=== PATIENT | female | born 1975 | race Caucasian/White ===

== ENCOUNTER 2020-01-29 08:39 | Day surgery (SDC) | payer BC ==
[~2020-01-29 08:39] MED LIST: AMLO5 PO; ASPI81CH PO; Aldactone50 MG PO; Aspir 8181 MG PO; CALCIUM 600 +1 EA11 PO; CEPH500 PO; ERGO400 PO; GLUCOSAMINE HCL PO; HYDCHL12.5 PO; IBUP800 PO; NEOCOLOTSU OT; PROACE100 PO; SERT50 PO; Super B Comple1 EAC2 PO; ZESTORETIC 20-121 E1 PO
--- NOTE | 2020-01-29 09:52 | NUR ---
01/29/20 0952 Sean Kirk LIDOCAINE 1% 1:100,000 & BUPIVACAINE 0.5% 1:1 INJECTED PRIOR TO SX START BY DR. GUERRERO FOR PAIN CONTROL.
--- NOTE | 2020-01-29 12:55 | NUR ---
01/29/20 1255 HAROLDO CABEZAS PATIENT UP TO RECLINER, DENIES NAUSE/PAIN AND VSS- IV DC'D. ICE PACK TO ELBOW AND ARM ELEVATED ON PILLOW. MOTHER TO BEDSIDE. ENGAGED IN DC TEACHING. PT TOLERATING CLEAR LIQUIDS. DENIES NEED FOR CRACKERS/COOKIES. ENGAGED IN DC TEACHING, ALL QUESTIONS ASKED AND ANSWERED. PT DC TO VEHICLE.
== END 2020-01-29 10:35 | disposition home or self-care (01) ==
LOC: ORSCSDS 08:39
PROVIDERS: Orthopaedic Surgery
PROC: 01N50ZZ Release Median Nerve, Open Approach (ICD-10-PCS; principal; 2020-01-29 10:00)
DX: G56.01 Carpal tunnel syndrome, right upper limb (principal); F41.8 Other specified anxiety disorders; I10 Essential (primary) hypertension; E66.01 Morbid (severe) obesity due to excess calories; Z68.43 Body mass index [BMI] 50.0-59.9, adult; Z79.899 Other long term (current) drug therapy
CPT/HCPCS: J0171; J0690; J1100; J1885; J2250; J2405; J2704; J3010; J7120

== ENCOUNTER 2020-02-25 06:32 | Day surgery (SDC) | payer BC ==
[~2020-02-25] VITALS: Ht 167.6 cm; Wt 143.7 kg
[~2020-02-25 06:32] MED LIST changes: +CLON.2 PO
--- NOTE | 2020-02-25 07:54 | NUR ---
AMBULATE4 TO DAY SURGERY. CONFIRMED PROCEDURE. PATIENTS STATES BM'S CLEAR. P[RE PROCEDURE TEACHING DONE. DAUGHTER AT SIDE
--- NOTE | 2020-02-25 08:23 | NUR ---
02/25/20 0823 Dalia Butler History, Chart, Medications and Allergies reviewed before start of procedure. PATIENT CONFIRMS NPO STATUS AND AGREES WITH SCHEDULED PROCEDURE. MONITOR INTACT WITH CONTINUOUS PULSE OXIMETRY AND INTERMITTENT BP. O2 VIA N/C INTACT THROUGHOUT SEDATION/PROCEDURE. 3-LEAD EKG REVIEWED WITH PHYSICIAN PRIOR TO START OF PROCEDURE. DR. WILSON PROVIDING ANESTHESIA CARE.
--- NOTE | 2020-02-25 09:56 | NUR ---
Patient up to Ambulate independently. Gait steady. Discharge instructions reviewed with patient. Patient verbalizes understanding. Copy given to patient to take home. Discharged via wheelchair to private car for ride home.
[2020-02-26] MEDS ORDERED: Hydrochloroth12.5 MG PO (09:08)
== END 2020-02-25 23:37 | disposition home or self-care (01) ==
LOC: ORSCMMR 06:32 → ORD 08:00 → ORSCMMR 08:00
PROVIDERS: Surgery
PROC: 0DBN8ZX Excision of Sigmoid Colon, Via Natural or Artificial Opening Endoscopic, Diagnostic (ICD-10-PCS; principal; 2020-02-25 08:00)
PROC: 0DBM8ZX Excision of Descending Colon, Via Natural or Artificial Opening Endoscopic, Diagnostic (ICD-10-PCS; principal; 2020-02-25 08:00)
DX: Z12.11 Encounter for screening for malignant neoplasm of colon (principal); D12.4 Benign neoplasm of descending colon; D12.5 Benign neoplasm of sigmoid colon; Z83.71 Family history of colonic polyps; E66.01 Morbid (severe) obesity due to excess calories; Z68.43 Body mass index [BMI] 50.0-59.9, adult; I10 Essential (primary) hypertension; Z79.82 Long term (current) use of aspirin; Z79.899 Other long term (current) drug therapy
CPT/HCPCS: 88305; J2704; J7120

== ENCOUNTER 2020-03-04 07:48 | Day surgery (SDC) | payer BC ==
[~2020-03-04] VITALS: Ht 167.6 cm; Wt 143.9 kg
[~2020-03-04 07:48] MED LIST changes: +Hydrochloroth12.5 MG PO
--- NOTE | 2020-03-04 09:22 | NUR ---
03/04/20 0922 Sean Kirk BUPIVICAINE 0.5% & LIDOCAINE 1% 1:100,000 MIXED 1:1 FOR PRE INJECTION BY DR. GUERRERO. TOTAL OF 10 MLS INJECTED.
== END 2020-03-04 10:23 | disposition home or self-care (01) ==
LOC: ORSCSDS 07:48
PROVIDERS: Orthopaedic Surgery
PROC: 01N50ZZ Release Median Nerve, Open Approach (ICD-10-PCS; principal; 2020-03-04 09:00)
DX: G56.02 Carpal tunnel syndrome, left upper limb (principal); I10 Essential (primary) hypertension; E66.01 Morbid (severe) obesity due to excess calories; Z68.43 Body mass index [BMI] 50.0-59.9, adult; Z79.899 Other long term (current) drug therapy
CPT/HCPCS: J0690; J2250; J3010; J7120

== ENCOUNTER → 2022-08-27 | Outpatient (CLI) | payer BC ==
[2022-08-28 15:12] LABS: HPV 16 Negative (Negative); HPV 18 Negative (Negative); HPV OTHER HR TYPES Negative (Negative)
== END | disposition home or self-care (01) ==
LOC: LAB SHORT 08:30 → LAB 08:30
PROVIDERS: Registered Nurse
DX: Z12.4 Encounter for screening for malignant neoplasm of cervix (principal)
CPT/HCPCS: 87624; G0145

== ENCOUNTER 2023-04-04 08:51 | Day surgery (SDC) | payer BC ==
[~2023-04-04] VITALS: Ht 167.6 cm; Wt 156.6 kg
[2023-04-04 09:28] VITALS: BP 143/94
--- NOTE | 2023-04-04 10:28 | NUR ---
04/04/23 1028 Marta Marie History, Chart, Medications and Allergies reviewed before start of procedure.MONITOR INTACT WITH CONTINUOUS PULSE OXIMETRY, CONTINUOUS END TITAL CO2, AND INTERMITTENT BLOOD PRESSURE.3-LEAD EKG REVIEWED WITH PHYSICIAN PRIOR TO START OF PROCEDURE.O2 VIA N/C INTACT THROUGHOUT SEDATION/PROCEDURE. PROVIDING ANESTHESIA.
[2023-04-04 10:51] VITALS: BP 126/90
--- NOTE | 2023-04-04 10:51 | NUR ---
PT TO DAY SURGERY STEP DOWN RECOVERY. PT AWAKE AND ALERT AND ORIENTED. ABLE TO MOVE SELF IN BED. PT HAS NO COMPLAINTS.
[2023-04-04 11:04] VITALS: BP 134/84
--- NOTE | 2023-04-04 11:04 | NUR ---
PT TOLERATING PO FLUIDS WELL. PT RIDE AT BEDSIDE Discharge instructions reviewed with patient. Patient verbalizes understanding. Copy given to patient to take home.
[2023-04-04 11:11] VITALS: BP 130/87
--- NOTE | 2023-04-04 11:15 | NUR ---
Patient up to Ambulate independently. Gait steady. Discharged via wheelchair to private car for ride home.
== END 2023-04-04 11:15 | disposition home or self-care (01) ==
LOC: ORSCMMR 08:51 → ORD 10:15 → ORSCMMR 10:15
PROVIDERS: Internal Medicine Gastroenterology
PROC: 0DBP8ZX Excision of Rectum, Via Natural or Artificial Opening Endoscopic, Diagnostic (ICD-10-PCS; principal; 2023-04-04 10:15)
PROC: 0DBN8ZX Excision of Sigmoid Colon, Via Natural or Artificial Opening Endoscopic, Diagnostic (ICD-10-PCS; principal; 2023-04-04 10:15)
PROC: 0DBH8ZX Excision of Cecum, Via Natural or Artificial Opening Endoscopic, Diagnostic (ICD-10-PCS; principal; 2023-04-04 10:15)
PROC: 0DBM8ZX Excision of Descending Colon, Via Natural or Artificial Opening Endoscopic, Diagnostic (ICD-10-PCS; principal; 2023-04-04 10:15)
DX: Z86.010 Personal history of colon polyps (principal); D12.4 Benign neoplasm of descending colon; K62.1 Rectal polyp; Z83.719 Family history of colon polyps, unspecified; I10 Essential (primary) hypertension; E66.01 Morbid (severe) obesity due to excess calories; Z68.43 Body mass index [BMI] 50.0-59.9, adult; Z79.82 Long term (current) use of aspirin; Z79.899 Other long term (current) drug therapy
CPT/HCPCS: 88305; J2704; J7120